=== PATIENT | male | born 1970 ===

== ENCOUNTER 2021-01-26 11:21 | Emergency (ER) | payer MEDICAID ==
[~2021-01-26] VITALS: Ht 185.4 cm; Wt 91.5 kg
[2021-01-26] MEDS ORDERED: KETOROLAC 30 MG/1 ML IM ONE (12:00)
[2021-01-26] MEDS ORDERED: KETOROLAC 30 MG/1 ML ONE (12:22)
--- NOTE | 2021-01-26 12:38 | NUR ---
LATE ENTRY DUE TO PATIENT CARE. PT REPORTS WALKING BACK HOME FROM [facility]. HAS UNSTEADY GAIT WHICH LEAD TO A GLF. FELL ONTO HIS RIGHT SIDE AND STATES IT HURTS WHEN HE TAKES A DEEP BREATH IN AND OUT.
[2021-01-26 13:25] VITALS: BP 149/90
== END 2021-01-26 13:52 | disposition home or self-care (01) ==
LOC: ED 13:01
DX: M94.0 Chondrocostal junction syndrome [Tietze] (principal); R07.89 Other chest pain; E11.9 Type 2 diabetes mellitus without complications
CPT/HCPCS: 71101; 96372; 99283; J1885